=== PATIENT | male | born 1970 | race Caucasian/White ===

== ENCOUNTER 2019-05-18 21:07 | Emergency (ER) | payer SELFPAY ==
[2019-05-18] MEDS ORDERED: VANCOMYCIN HCL INJ 1000 MG VIAL IV ONE ×2 (22:22→23:45)
[2019-05-18] MEDS ORDERED: CEFTRIAXONE 1 GM/D5W RTU 1 GM/50 ML RTUPB IV ONE (22:22)
--- NOTE | 2019-05-18 22:22 | ER Document Report ---
ED Medical Screen (RME) - General Chief Complaint: Insect Bite Stated Complaint: POSSIBLE INSECT BITE Time Seen by Provider: 05/18/19 22:20 - HPI Notes: 05/18/19 22:21 Patient is a 48-year-old male no significant past medical history presents complaining of possible insect bite to his right medial upper leg about 2 to 3 days ago. Patient states that since then the redness has progressed and he has noticed a streak going up into his right inguinal area. Denies fever. I have treated and performed a rapid initial assessment of this patient. A comprehensive ED assessment and evaluation of the patient, analysis of test resu lts and completion of medical decision making process will be conducted by additional ED providers. PHYSICAL EXAMINATION: GENERAL: Well-appearing, well-nourished and in no acute distress. A&Ox4. A nswers questions appropriately. Right leg: There is a large area of erythema and warmth with an indurated center from a possible insect bite versus infected hair follicle. There is a streak moving proximally towards the inguinal area. There is tenderness to palpation. - Related Data Allergies/Adverse Reactions: No Known Allergies Allergy (Verified 05/18/19 22:11) Physical Exam - Vital signs Vitals: Temp Pulse Resp BP Pulse Ox 97.8 F 77 18 123/81 97 05/18/19 21:34 05/18/19 21:34 05/18/19 21:34 05/18/19 21:34 05/18/19 21:34 Course - Vital Signs Vital signs: Temp Pulse Resp BP Pulse Ox 97.8 F 77 18 123/81 97 05/18/19 21:34 05/18/19 21:34 05/18/19 21:34 05/18/19 21:34 05/18/19 21:34
[2019-05-19 00:21] LABS: ABSOLUTE BASOPHILS # (AUTO) 0.1 10^3/uL (0.0-0.2); ABSOLUTE EOSINOPHILS # (AUTO) 0.4 10^3/uL (0.0-0.6); ABSOLUTE LYMPHOCYTES (AUTO) 3.4 10^3/uL (0.5-4.7); ABSOLUTE MONOCYTES (AUTO) 0.8 10^3/uL (0.1-1.4); ABSOLUTE NEUT (AUTO) 6.3 10^3/uL (1.7-8.2); BASOPHILS % (AUTO) 1.1 % (0-2); EOSINOPHILS % (AUTO) 3.6 % (0-6); HEMATOCRIT 36.8 % (37.9-51.0); HEMOGLOBIN 12.5 g/dL (13.5-17.0); LYMPHOCYTES % (AUTO) 30.5 % (13-45); MEAN CORPUSCULAR HEMOGLOBIN 28.8 pg (27.0-33.4); MEAN CORPUSCULAR VOLUME 85 fl (80-97); MONOCYTES % (AUTO) 7.6 % (3-13); PLATELET COUNT 279 10^3/uL (150-450); RED BLOOD COUNT 4.34 10^6/uL (4.35-5.55); SEGMENTED NEUTROPHILS % (AUTO) 57.2 % (42-78); TOTAL CELLS COUNTED % (AUTO) 100 %
--- NOTE | 2019-05-19 00:24 | ER Document Report ---
ED General - General Chief Complaint: Insect Bite Stated Complaint: POSSIBLE INSECT BITE Time Seen by Provider: 05/18/19 22:20 - HPI Patient complains to provider of: right leg redness Onset: Last week Onset/Duration: Gradual Quality of pain: Achy, Burning Severity: Moderate Pain Level: 2 Context: 48 year old male awoke 2 days ago with pustule on rihgt leg medial thigh ? insect bite and since then has developed redness and warmth and pain spreading from the area. No fever or chills or nausea or vomiting. Exacerbated by: Denies Relieved by: Denies - Related Data Allergies/Adverse Reactions: No Known Allergies Allergy (Verified 05/18/19 22:11) Past Medical History - Social History Smoking Status: Former Smoker Chew tobacco use (# tins/day): No Frequency of alcohol use: None Drug Abuse: Marijuana Family History: Reviewed & Not Pertinent Patient has suicidal ideation: No Patient has homicidal ideation: No Review of Systems - Review of Systems Constitutional: No symptoms reported EENT: No symptoms reported Cardiovascular: No symptoms reported Respiratory: No symptoms reported Gastrointestinal: No symptoms reported Genitourinary: No symptoms reported Male Genitourinary: No symptoms reported Musculoskeletal: No symptoms reported Skin: No symptoms reported Hematologic/Lymphatic: No symptoms reported Neurological/Psychological: No symptoms reported Physical Exam - Vital signs Vitals: Temp Pulse Resp BP Pulse Ox 97.8 F 77 18 123/81 97 05/18/19 21:34 05/18/19 21:34 05/18/19 21:34 05/18/19 21:34 05/18/19 21:34 Interpretation: Normal - General General appearance: Appears well, Alert - HEENT Head: Normocephalic, Atraumatic Eyes: Normal Pupils: PERRL - Respiratory Respiratory status: No respiratory distress Chest status: Nontender Breath sounds: Normal Chest palpation: Normal - Cardiovascular Rhythm: Regular Heart sounds: Normal auscultation Murmur: No - Abdominal Inspection: Normal Distension: No distension Bowel sounds: Normal Tenderness: Nontender Organomegaly: No organomegaly - Back Back: Normal, Nontender - Extremities General upper extremity: Normal inspection, Nontender, Normal color, Normal ROM, Normal temperature General lower extremity: Tender, Normal color, Normal ROM, Normal temperature, Normal weight bearing, Other - ttp right thigh medially. 1 cm central indurated area and extensive redness extends toward but not past knee and to groin. Marked with skin marking pen.. No: Ofelia's sign - Neurological Neuro grossly intact: Yes Cognition: Normal Orientation: AAOx4 [place] Coma Scale Eye Opening: Spontaneous [place] Coma Scale Verbal: Oriented [place] Coma Scale Motor: Obeys Commands [place] Coma Scale Total: 15 Speech: Normal Motor strength normal: LUE, RUE, LLE, RLE Sensory: Normal - Psychological Associated symptoms: Normal affect, Normal mood - Skin Skin Temperature: Warm Skin Moisture: Dry Skin Color: Normal Course - Vital Signs Vital signs: Temp Pulse Resp BP Pulse Ox 98 F 65 16 132/82 H 95 05/19/19 02:30 05/19/19 02:30 05/19/19 02:30 05/19/19 02:30 05/19/19 02:30 - Laboratory Result Diagrams: 05/19/19 00:00 05/19/19 00:00 Laboratory results interpreted by me: 05/19/19 00:00 WBC 11.0 H RBC 4.34 L Hgb 12.5 L Hct 36.8 L - Diagnostic Test Radiology reviewed: Reports reviewed Discharge - Discharge Clinical Impression: Cellulitis Qualifiers: Site of cellulitis: unspecified site Qualified Code(s): L03.90 - Cellulitis, unspecified Condition: Good Disposition: HOME, SELF-CARE Instructions: Cellulitis (COUNTS INCLUDE 234 BEDS AT THE [facility]), Family Physicians / Practices Additional Instructions: See your doctor in follow up later this week as discussed. Please return here for any problems or any concerns. Take the antibiotic as directed. Prescriptions: Sulfamethoxazole/Trimethoprim [Bactrim Ds Tablet] 2 each PO BID 10 Days #40 tablet
[2019-05-19 00:30] LABS: ALKALINE PHOSPHATASE 76 U/L (38-126); ANION GAP 7 (5-19); ASPARTATE AMINO TRANSFERASE 23 U/L (17-59); BILIRUBIN,DIRECT 0.2 mg/dL (0.0-0.4); BILIRUBIN,TOTAL 0.3 mg/dL (0.2-1.3); BLOOD UREA NITROGEN 16 mg/dL (7-20); CALCIUM 9.3 mg/dL (8.4-10.2); CARBON DIOXIDE 29 mmol/L (22-30); CHLORIDE 104 mmol/L (98-107); GLUCOSE 90 mg/dL (75-110); POTASSIUM 3.9 mmol/L (3.6-5.0)
[2019-05-19 02:50] VITALS: BP 132/82
== END 2019-05-19 02:30 | disposition home or self-care (01) ==
LOC: ER 21:07
DX: L03.90 Cellulitis, unspecified (principal); F12.10 Cannabis abuse, uncomplicated; Z87.891 Personal history of nicotine dependence
CPT/HCPCS: 99282; 96365; 96366; 96367; 36415; 87040; 85025; 80053; J3370; J0696

== ENCOUNTER 2019-10-31 18:06 | Emergency (ER) | payer SELFPAY ==
[2019-10-31] MEDS ORDERED: MORPHINE SULFATE 10 MG/ML INJ IV ONE (18:26)
[2019-10-31] MEDS ORDERED: KETOROLAC TROMETHAMINE INJ/PF 30 MG/1 ML SDV IV ONE (18:26)
[2019-10-31] MEDS ORDERED: ONDANSETRON HCL INJ/PF 4 MG/2 ML SDV IV ONE (18:27)
--- NOTE | 2019-10-31 18:30 | ER Document Report ---
ED Medical Screen (RME) - General Chief Complaint: Possible Kidney Stone Stated Complaint: POSSIBLE KIDNEY STONES Time Seen by Provider: 10/31/19 18:24 Notes: Patient is a 49-year-old male who presents emergency department with a chief complaint of left flank pain. Patient reports he had acute onset of left flank pain. Patient reports he does have a history of kidney stones and although he has not had one in a while he feels like this is a similar type pain. Patient reports nausea. Patient reports having difficulty completely emptying his bladder. Denies blood in the urine. - Related Data Allergies/Adverse Reactions: No Known Allergies Allergy (Verified 10/31/19 18:21) Past Medical History - Social History Chew tobacco use (# tins/day): No Frequency of alcohol use: None Drug Abuse: Marijuana Physical Exam - Vital signs Vitals: Temp Pulse Resp BP Pulse Ox 98.6 F 58 L 20 162/88 H 98 10/31/19 18:16 10/31/19 18:16 10/31/19 18:16 10/31/19 18:16 10/31/19 18:16 Course - Re-evaluation Re-evalutation: 10/31/19 18:29 Patient unable to find position of comfort in triage due to discomfort. I will initiate an IV saline lock, basic labs, urinalysis and a CT. Patient reports history of kidney stones and this feels the same despite not having a stone in a while. I have greeted and performed a rapid initial assessment of this patient. A comprehensive ED assessment and evaluation of the patient, analysis of test results and completion of the medical decision making process will be conducted by additional ED providers. - Vital Signs Vital signs: Temp Pulse Resp BP Pulse Ox 98.6 F 58 L 20 162/88 H 98 10/31/19 18:16 10/31/19 18:16 10/31/19 18:16 10/31/19 18:16 10/31/19 18:16
[2019-10-31 18:48] LABS: ABSOLUTE BASOPHILS # (AUTO) 0.1 10^3/uL (0.0-0.2); ABSOLUTE EOSINOPHILS # (AUTO) 0.2 10^3/uL (0.0-0.6); ABSOLUTE LYMPHOCYTES (AUTO) 3.4 10^3/uL (0.5-4.7); ABSOLUTE MONOCYTES (AUTO) 0.7 10^3/uL (0.1-1.4); ABSOLUTE NEUT (AUTO) 6.5 10^3/uL (1.7-8.2); BASOPHILS % (AUTO) 0.9 % (0-2); HEMATOCRIT 38.1 % (37.9-51.0); HEMOGLOBIN 13.4 g/dL (13.5-17.0); MEAN CORPUSCULAR HEMOGLOBIN 29.8 pg (27.0-33.4); MEAN CORPUSCULAR HGB CONC 35.1 g/dL (32.0-36.0); MEAN CORPUSCULAR VOLUME 85 fl (80-97); MONOCYTES % (AUTO) 6.3 % (3-13); PLATELET COUNT 295 10^3/uL (150-450); RED BLOOD COUNT 4.48 10^6/uL (4.35-5.55); SEGMENTED NEUTROPHILS % (AUTO) 59.8 % (42-78); TOTAL CELLS COUNTED % (AUTO) 100 %; WHITE BLOOD COUNT 10.8 10^3/uL (4.0-10.5)
[2019-10-31 19:04] LABS: APPEARANCE,URINE SLIGHTLY-CLOUDY; BILIRUBIN,URINE NEGATIVE (NEGATIVE); CALCIUM OXALATE CRYSTALS,URINE MODERATE /HPF; COLOR,URINE YELLOW; GLUCOSE, URINE NEGATIVE (NEGATIVE); KETONES,URINE TRACE mg/dL (NEGATIVE); LEUKOCYTE ESTERASE,URINE SMALL (NEGATIVE); NITRITE,URINE NEGATIVE (NEGATIVE); PROTEIN,URINE 30 mg/dL (NEGATIVE); URINE SPECIFIC GRAVITY 1.023; UROBILINOGEN,URINE NEGATIVE mg/dL (<2.0)
[2019-10-31 19:05] LABS: ALBUMIN 4.7 g/dL (3.5-5.0); ALKALINE PHOSPHATASE 68 U/L (38-126); ANION GAP 5 (5-19); ASPARTATE AMINO TRANSFERASE 25 U/L (17-59); BILIRUBIN,TOTAL 0.6 mg/dL (0.2-1.3); BLOOD UREA NITROGEN 17 mg/dL (7-20); CALCIUM 9.8 mg/dL (8.4-10.2); CARBON DIOXIDE 29 mmol/L (22-30); CHLORIDE 105 mmol/L (98-107); GLUCOSE 109 mg/dL (75-110); POTASSIUM 4.2 mmol/L (3.6-5.0); TOTAL PROTEIN 7.7 g/dL (6.3-8.2)
--- NOTE | 2019-10-31 19:06 | RADIOLOGY REPORT (SQ) ---
EXAM DESCRIPTION: CT ABD/PELVIS NO ORAL OR IV IMAGES COMPLETED DATE/TIME: 10/31/2019 6:39 pm REASON FOR STUDY: left flank pain, hx. kidney stones COMPARISON: None. TECHNIQUE: CT scan of the abdomen and pelvis performed without intravenous or oral contrast. Images reviewed with lung, soft tissue, and bone windows. Reconstructed coronal and sagittal MPR images revi ewed. All images stored on PACS. All CT scanners at this facility use dose modulation, iterative reconstruction, and/or weight based d osing when appropriate to reduce radiation dose to as low as reasonably achievable (ALARA). [facility]: Dose Right [facility]: CareDose [facility]: Dose Right [facility]: Teradose 4D [facility]: Smart Thrupoint RADIATION DOSE: CT Rad equipment meets quality standard of care and radiation dose reduction techniq ues were employed. CTDIvol: 7.2 mGy. DLP: 422 mGy-cm.mGy. LIMITATIONS: None. FINDINGS: LOWER CHEST: No significant findings. No nodules or infiltrates. NON-CONTRASTED LIVER, SPLEEN, ADRENALS: Evaluation limited by lack of IV contrast. No identified sign ificant masses. PANCREAS: No masses. No peripancreatic inflammatory changes. GALLBLADDER: Gallstones. No inflammatory changes to suggest cholecystitis. RIGHT KIDNEY AND URETER: No suspicious masses. Assessment limited by lack of IV contrast. Nonobstru cting nephroliths are demonstrated. No hydronephrosis or hydroureter. LEFT KIDNEY AND URETER: No suspicious masses. Assessment limited by lack of IV contrast. Mild hydron ephrosis and ureterectasis on the basis of a 5 x 5 x 8 mm distal ureterolith. AORTA AND RETROPERITONEUM: No aneurysm. No retroperitoneal masses or adenopathy. BOWEL AND PERITONEAL CAVITY: No obvious masses or inflammatory changes. No free fluid. APPENDIX: Normal. PELVIS, BLADDER, AND ABDOMINAL WALL:The bladder is largely decompressed. No free fluid. No masses. BONES: No significant findings. OTHER: No other significant finding. IMPRESSION: Mild left-sided hydronephrosis and ureterectasis on the basis of a 5 x 5 x 8 mm distal u reterolith. COMMENT: Quality ID # [id number]: Final reports with documentation of one or more dose reduction techniques (e.g., Automated exposure control, adjustment of the mA and/or kV according to patient size, use of iterative reconstruction technique) TECHNICAL DOCUMENTATION: JOB ID: [id number] 2010 [employer]- All Rights Reserved Reading location - IP/workstation name: [email or web address]
--- NOTE | 2019-10-31 20:29 | ER Document Report ---
ED General - General Chief Complaint: Possible Kidney Stone Stated Complaint: POSSIBLE KIDNEY STONES Time Seen by Provider: 10/31/19 18:24 Primary Care Provider: BENNETT CHRISTIANSON MD [NO LOCAL MD] - Follow up as needed Notes: 49-year-old male with a past medical history of kidney stones and restless leg syndrome presenting today with left flank pain starting at 3 PM. He wasn't doing anything particular when the pain started. States that the pain radiates from his left flank to his testicles. States that there is some increased urgency with urination. States he is able to urinate. No blood in his urine. His last kidney stone was approximately 10 to 12 years ago and was approximately 5 mm in size and he was able to pass it spontaneously. He is uncertain if he had another attack on the left side a couple months ago because he had similar symptoms that lasted for a few hours and then they was self resolved. He does not have a urologist nor has he seen a urologist for his kidney stones. Currently in no pain. Denies any fever, chills, nausea vomiting or additional symptoms. His primary care is in [place]. Denies tobacco use, alcohol use, reports occasional marijuana use. Reports only medication he takes is Ropinerole. - Related Data Allergies/Adverse Reactions: No Known Allergies Allergy (Verified 10/31/19 18:21) Past Medical History - Social History Smoking Status: Never Smoker Chew tobacco use (# tins/day): No Frequency of alcohol use: None Drug Abuse: Marijuana Family History: Reviewed & Not Pertinent Review of Systems - Review of Systems Constitutional: No symptoms reported EENT: No symptoms reported Cardiovascular: No symptoms reported Respiratory: No symptoms reported Gastrointestinal: See HPI Genitourinary: See HPI Male Genitourinary: No symptoms reported Musculoskeletal: No symptoms reported Skin: No symptoms reported Hematologic/Lymphatic: No symptoms reported Neurological/Psychological: No symptoms reported Physical Exam - Vital signs Vitals: Temp Pulse Resp BP Pulse Ox 98.6 F 58 L 20 162/88 H 98 10/31/19 18:16 10/31/19 18:16 10/31/19 18:16 10/31/19 18:16 10/31/19 18:16 Interpretation: Hypertensive. No: Normal, Hypotensive - Notes Notes: Adult General: GENERAL: Alert, interacts well. No acute distress HEAD: Normocephalic, atraumatic EYES: Pupils equal, round and reactive to light. Extraocular movements intact. ENT: Oral mucosa moist, tongue midline. Oropharynx unremarkable. Airway patent. Nares patent. NECK: Full range of motion. Supple. Trachea midline. No lymphadenopathy. LUNGS: Clear to auscultation bilaterally, no wheezes, rales, or rhonchi. No respiratory distress. Nontender chest wall. HEART: Regular rate and rhythm. No murmurs, rubs or gallops. ABDOMEN: Soft, nontender. Nondistended. Bowel sounds present in all 4 quadrants. GENITOURINARY: Deferred EXTREMITIES: Moves all 4 extremities spontaneously. BACK: No CVA tenderness. No cervical, thoracic, lumbar midline tenderness. Moves all extremities with full range of motion. NEUROLOGICAL: Alert and oriented x3. Normal speech. Strength 5/ 5 in all extremities. PSYCH: Normal affect, normal mood. SKIN: Warm, dry, normal turgor. No rashes or lesions noted. Course - Re-evaluation Re-evalutation: 10/31/19 20:32 Patient on examination is resting peacefully in the bed. Denies any nausea, vomiting or any pain. His CT scan does show a 5 x 5 x 8 mm distal ureterolith on the left kidney with mild hydronephrosis and ureterectasis. Also notes gallstones with no signs of inflammatory changes. Urinalysis is positive for blood, ketones, protein and small leukocyte esterase and 9 WBC's. He denies any right upper quadrant or epigastric pain or pain with urination. As patient's urinalysis shows the potential start of infection we will go ahead and prophylactically treat patient with antibiotics to help prevent any infection. Also discussed with patient the use of the Flomax to help dilate the ureters to help the stone pass and he will be discharged on pain medication. Discussed the CT scan findings with the patient. Discussed with patient gallstones and if he develops epigastric or right upper quadrant pain he will need to follow-up for possible gallstone attack or cholecystitis. I am comfortable discharging this patient as he is currently in no pain, is afebrile has no nausea or vomiting. Discussed with patient the need to follow-up with urology as soon as possible as the stone may not pass spontaneously. Referral will be placed to Dr. Christianson at [facility]. Patient acknowledges and verbalizes understanding of instructions. All questions answered. - Vital Signs Vital signs: Temp Pulse Resp BP Pulse Ox 98.6 F 58 L 20 162/88 H 98 10/31/19 18:16 10/31/19 18:16 10/31/19 18:16 10/31/19 18:16 10/31/19 18:16 - Laboratory Result Diagrams: 10/31/19 18:35 10/31/19 18:35 Laboratory results interpreted by me: 10/31/19 10/31/19 18:35 18:35 WBC 10.8 H Hgb 13.4 L Urine Protein 30 H Urine Ketones TRACE H Urine Blood LARGE H Ur Leukocyte Esterase SMALL H Discharge - Discharge Clinical Impression: Nephrolithiasis Gall stone Qualifiers: Cholecystitis presence: without cholecystitis Biliary obstruction: without biliary obstruction Qualified Code(s): K80.20 - Calculus of gallbladder without cholecystitis without obstruction Condition: Stable Disposition: HOME, SELF-CARE Instructions: Ciprofloxacin ([facility]), Flomax ([facility]), Kidney Stone ([facility]) Additional Instructions: Please take medication as prescribed. The antibiotic is being prescribed to help prevent any infection due to the stone. Please follow-up with urology as soon as possible. Please also follow-up with your primary care soon as possible. Return to the emergency department for the development of new symptoms or worsening symptoms. Prescriptions: Ciprofloxacin HCl [Cipro 500 mg Tablet] 500 mg PO BID #20 tablet Tamsulosin HCl [Flomax 0.4 mg Cap.sr] 0.4 mg PO DAILY #10 cap.sr.24h Referrals: BENNETT CHRISTIANSON MD [NO LOCAL MD] - Follow up as needed
[2019-10-31] MEDS ORDERED: HYDROCODONE/ACETAMINOPHEN 5-325 MG (6 TAB/ER DISP) PO PRN (20:43)
[2019-10-31 21:19] VITALS: BP 124/81
== END 2019-10-31 21:19 | disposition home or self-care (01) ==
LOC: ER 18:06
DX: N13.2 Hydronephrosis with renal and ureteral calculous obstruction (principal); K80.20 Calculus of gallbladder without cholecystitis without obstruction; R39.15 Urgency of urination; R31.9 Hematuria, unspecified; F12.10 Cannabis abuse, uncomplicated
CPT/HCPCS: 99284; 96374; 96375; 36415; 87086; 85025; 80053; 81001; 74176; J1885; J2270; J2405; 87088